=== PATIENT | female | born 1965 | race Caucasian/White ===

== ENCOUNTER 2020-07-05 00:11 | Emergency (ER) | payer BC, SELFPAY ==
--- NOTE | ~2020-07-05 | CT_ITS ---
EXAMINATION: CT abdomen pelvis w con DATE: 07/05/2020 02:53 INDICATION: Epigastric abdominal pain TECHNIQUE: Computed tomography (CT) of the abdomen and pelvis was performed with 100 cc Omnipaque 350 intravenous contrast. Automated exposure control and iterative reconstruction technique were employe d. Exam dose: 691.48 mGy-cm total exam DLP. COMPARISON: None. FINDINGS: The lung bases are clear. Normal heart size. No pericardial or pleural effusion. Cholelithiasis is suggested. Consider gallbladder ultrasound examination. No bile duct dilatation. No hepatic or pancreatic occupying mass lesion or bile duct or pancreatic duct dilatation. No pancrea tic calcification. Normal splenic size. Normal morphology of the adrenal glands. 11 mm lower pole right renal cyst. The kidneys are otherwise unremarkable. No ureteral calculus or hy droureteronephrosis. The urinary bladder is unremarkable. Up to 1.6 cm right ovarian cyst; the uterus and adnexal areas are otherwise unremarkable. Normal caliber of the abdominal aorta. No intraperitoneal or retroperitoneal or pelvic mass lesion or adenopathy or ascites. Small sliding hiatal hernia. Normal appendix. There is mild colonic diverticulosis; no CT evidence of diverticulitis. 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 No suspicious osteolytic or osteoblastic lesions are noted. IMPRESSION: Possible cholelithiasis; consider gallbladder ultrasound examination ; Small sliding hiatal hernia 11 mm right renal cyst Up to 1.6 in the right ovarian cyst Normal appendix Mild colonic diverticulosis Reviewed, dictated and finalized at [facility]. Reviewed, dictated and finalized at [facility]. IMPRESSION: Possible cholelithiasis; consider gallbladder ultrasound examinati on ; Small sliding hiatal hernia 11 mm right renal cyst Up to 1.6 in the right ovarian cyst Normal appendix Mild colonic diverticulosis
[2020-07-05 00:23] VITALS: BP 145/75; PULSE 67; RESP 18; TEMP 36; O2SAT 100
[2020-07-05 00:43] LABS: Basophils Percent Auto 0.4 % (0.2-1.2); Eosinophils Absolute Auto 0.2 K/mm3 (0-0.3); Eosinophils Percent Auto 1.8 % (0-4.4); Immature Granulocyte Absolute 0.03 K/mm3 (0.00-0.031); Immature Granulocyte Percent A 0.3 % (0-0.5); Lymphocytes Percent Auto 17.8 % (18.3-44.2); Mean Corpuscular HGB Conc 36.6 g/dl (32-36); Mean Corpuscular Hemoglobin 34.3 pg (26-34); Mean Corpuscular Volume 93.8 fl (80-100); Mean Platelet Volume 9.3 fl (7.4-10.4); Monocytes Absolute Auto 0.5 K/mm3 (0.1-0.6); Monocytes Percent Auto 5.3 % (2.6-8.5); Neutrophils Absolute Auto 7.1 K/mm3 (1.3-6.7); Neutrophils Percent Auto 74.4 % (45.5-73.1); Platelet Count Result 244 k/mm3 (150-375); Red Blood Count 4.37 M/mm3 (4.2-5.4); White Blood Count 9.6 K/mm3 (4.5-10.0)
[2020-07-05 01:04] LABS: Alanine Aminotransferase 24 U/L (4-35); Albumin Level 4.9 g/dL (3.5-5.1); Alkaline Phosphatase 56 U/L (38-126); Anion Gap 13 mmol/L (8-16); Aspartate Amino Transferase 28 U/L (14-36); Bilirubin,Total 0.3 mg/dL (0.2-1.3); Blood Urea Nitrogen 11 mg/dL (7-17); Calcium 9.7 mg/dL (8.4-10.2); Carbon Dioxide 24 mmol/L (22-30); Chloride 100 mmol/L (98-107); Estimated CRCL calculation 96 ml/min; Estimated Glomerular Filt Rate > 60; Glucose 128 mg/dL (65-105); Lipase 157 U/L (23-300); Potassium 3.6 mmol/L (3.4-5.0); Sodium 137 mmol/L (137-145)
--- NOTE | 2020-07-05 01:48 | PC.NURSE ---
Pt presents to ED with complaints of diffuse abdominal pain. Pt states pain onset at approx 2100 and she had one episode of emesis at 2300. Pt states she had recently eaten dinner prior to onset of abdominal pain. Pain noted to radiated to center of back with intermittent nausea. Pt denies pain and discomfort with urination and hx of gallstones or issues with gall bladder and pancreas. Pt alert and oriented x4. Spouse is present at bedside. Pt ambulated in [place] with steady gait to provide urine specimen. 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
[2020-07-05 02:28] LABS: Add Urine Microscopic? YES; Amorphous Sediment Urine Few; Appearance Urine Cloudy (Clear); Bacteria Urine Trace /hpf; Bilirubin Urine Negative (Negative); Blood Urine Negative (Negative); Color Urine Yellow (Yellow); Glucose Urine UA Negative (Negative); Ketones Urine Negative (Negative); Leukocyte Esterase Ur Negative LEU/UL (Negative); Mucus Urine Rare /lpf; Nitrate Urine Negative (Negative); Protein Urine Negative (Negative); RBC Urine 0-2 /hpf (0-2); Specific Grav Ur 1.012 (1.001-1.035); Squamous Epithelial Cell Urine Rare /hpf (Few); Urobilinogen Urine Negative mg/dL (<2.0); WBC Urine 0-3 /hpf
[2020-07-05] MEDS: MORPHINE SULFATE (*CRX) 4 MG/ML INJ IV PUSH (02:35)
[2020-07-05] MEDS: ONDANSETRON INJ 4 MG/2 ML VIAL IV PUSH (02:35)
[2020-07-05] MEDS: SODIUM CHLORIDE 0.9% IV 1,000 ML 999 ML IV CONT (02:35)
--- NOTE | 2020-07-05 03:09 | ED.ABDPAIN ---
HPI - Abdominal Pain General Chief Complaint: Abdominal Pain Stated Complaint: abd pain Time Seen by Provider: 07/05/20 02:21 Source: patient and RN notes reviewed Mode of arrival: ambulatory Limitations: no limitations and clinical condition History of Present Illness HPI narrative: Patient is 55 years old white female presents with sudden onset of epigastric pain started at 9 PM., Sharp, no radiation, patient been taking Advil for back pain for the last 2 days. The above symptom associated with nausea and vomiting once. Patient denies fever, chills, chest pain, shortness of breath, headache or shortness of breath. Patient does not smoke or drink or uses marijuana. History of depression Related Data Home Medications Medication Instructions Recorded Confirmed cetirizine [Zyrtec] 10 mg PO DAILY 07/05/20 dextroamphetamine-amphetamine PO 07/05/20 [Adderall XR] sertraline mg 07/05/20 Allergies Allergy/AdvReac Type Severity Reaction Status Date / Time Sulfa (Sulfonamide Allergy Unknown Rash Verified 07/05/20 00:26 Antibiotics) Wasp Allergy Unknown SWELLING/IT Uncoded 07/05/20 00:26 KAILYN Review of Systems Review of Systems: Narrative: CONSTITUTIONAL: Denies fever, chills, or sweats. EYES: Denies visual changes, redness, or discharge. ENT: Denies rhinorrhea, congestion, sore throat, or otalgia. CARDIOVASCULAR: Denies chest pain, palpitations, or edema. RESPIRATORY: Denies cough or dyspnea. GASTROINTESTINAL: Denies abdominal pain, nausea, vomiting, or diarrhea. GENITOURINARY: Denies dysuria or hematuria. SKIN: Denies rash or itching. MUSCULOSKELETAL: Denies back pain, joint pain, or myalgia. NEUROLOGIC: Denies headache, numbness, or weakness. PSYCHIATRIC: Denies anxiety or depression. [facility] Family History Family History Mother Family history of chronic obstructive pulmonary disease Other Diabetes mellitus Social History Social History Smoking status: Never smoker Alcohol intake: never Gender identity (if verbalized by the patient): Female Sexual Orientation (if Verbalized by the Patient): Straight or Heterosexual Exam Narrative: Exam Narrative: General appearance: Well-developed, well-nourished Skin: Normal color Head: Normocephalic, nontraumatic Eyes: Clear conjunctiva ENT: Oropharynx normal, ears normal, nose normal Neck: Supple, nontender Chest and respiratory: Airway patent, no respiratory distress, no accessory muscle use Heart: Regular rate/rhythm Abdomen: Soft, moderate tenderness upper abdomen, epigastric area, no organomegaly, quiet bowel sounds Vascular: Normal peripheral pulses, normal capillary refill. Musculoskeletal: Normal range of motion, nontender back Neurologic: Alert and oriented ?3, [employer] is normal as tested, no gross motor deficit Course Course Emergency Course: Stable Vital Signs Vital signs: Vital Signs Temperature 36.0 C L 07/05/20 00:23 Pulse Rate 67 07/05/20 00:23 Respiratory Rate 18 07/05/20 00:23 Blood Pressure 145/75 H 07/05/20 00:23 Pulse Oximetry 100 07/05/20 00:23 Temperature 36.0 C L 07/05/20 00:23 Pulse Rate 73 07/05/20 04:32 Respiratory Rate 20 07/05/20 04:32 Blood Pressure 129/81 07/05/20 04:32 Pulse Oximetry 97 07/05/20 04:32 MDM - Abdominal Pain MDM Narrative Medical decision making narrative: Patient presents with epigastric pain, labs, CT abdomen pelvis with IV contrast, IV fluid, IV Dilaudid and Zofran ordered. Further plan to follow Differential Diagnosis Differential diagnosis: Likely abdominal pain, constipation, g
[2020-07-05] MEDS: HYDROmorphone HCL INJ (*CRX) 1 MG/ML SYR 0.5 MG IV PUSH ×2 (03:21→04:45)
[2020-07-05 04:32] VITALS: BP 129/81; PULSE 73; RESP 20; O2SAT 97
[2020-07-05] MEDS: BELLADONNA ALK/PHENOB ELIX 10 ML, MAG HYDROX/ALUMINUM HYD/SIMETH 30 ML, LIDOCAINE HCL 2... PO (05:19)
--- NOTE | 2020-07-05 05:30 | PC.NURSE ---
Pt resting on cart in its lowest position with call button and personal items within reach. EDMD presented to bedside to update pt on poc. All questions and concerns addressed. Pt advised that she will be dc'd shortly and to press call button for assistance.
[2020-07-05 06:00] VITALS: BP 113/66; PULSE 77; RESP 17; TEMP 37; O2SAT 100
== END 2020-07-05 06:02 | disposition home or self-care (01) ==
PROVIDERS: Emergency Provider Emergency Medicine; PCP Family Medicine
DX: R10.13 Epigastric pain (principal); K44.9 Diaphragmatic hernia without obstruction or gangrene; N28.1 Cyst of kidney, acquired; K57.90 Diverticulosis of intestine, part unspecified, without perforation or abscess without bleeding; N83.201 Unspecified ovarian cyst, right side; R93.2 Abnormal findings on diagnostic imaging of liver and biliary tract
CPT/HCPCS: 36415; 74177; 80053; 81001; 81025; 83690; 85025; 96361; 96374; 96375; 96376; 99284; A9270; J1170; J2270; J2405; J7030; Q9967

== ENCOUNTER → 2020-07-24 10:29 | Outpatient (CLI) | payer BC, SELFPAY ==
--- NOTE | ~2020-07-24 | US_ITS ---
EXAMINATION: US abdomen limited DATE: 07/24/2020 11:21 INDICATION: Right upper quadrant abdominal pain. TECHNIQUE: Multiple grayscale and Doppler ultrasound images of the abdomen were obtained. COMPARISON: CT abdomen and pelvis 07/05/2020 FINDINGS: The visualized portions of the head and body of the pancreas are normal. The liver is jasbir l without focal lesion. No liver surface nodularity. There is normal flow in main portal vein. The ga llbladder is contracted and contains gallstones. Gallbladder wall thickening is likely secondary to g allbladder contraction. There was no sonographic Anders sign. The common duct is normal and measures 5 mm. IMPRESSION: 1. Contracted gallbladder with gallstones. No specific evidence of acute cholecystitis. Reviewed, dictated and finalized at [facility]. IMPRESSION: 1. Contracted gallbladder with gallstones. No specific evidence of acute cholec ystitis.
== END ==
PROVIDERS: PCP Family Medicine; Visit Provider Surgery
DX: R10.11 Right upper quadrant pain (principal); K80.20 Calculus of gallbladder without cholecystitis without obstruction
CPT/HCPCS: 76705